=== PATIENT | female | born 2000 | race Caucasian/White ===

== ENCOUNTER 2025-03-24 12:59 | Emergency (ER) | payer OTHER, SELFPAY ==
[2025-03-24 13:03] VITALS: BP 120/77; PULSE 79; RESP 17; TEMP 36.6; O2SAT 100; BMI 22.3
--- NOTE | 2025-03-24 13:15 | ED_ITS ---
HPI - Extremity Problem General Chief complaint: Extremity Problem,Nontraumatic Stated complaint: Ring stuck on finger, Swelling Time Seen by Provider: 03/24/25 13:15 Source: patient Mode of arrival: Ambulatory History of Present Illness HPI Narrative: 24-year-old female presents with complaint of ring stuck on her finger. Patient states has been on for about 2 days started has a little bit of swelling tried to get off last night without any success she thought swelling might go down but did not improve has not been able to remove it. Patient denies any numbness or tingling. Presents she has been unable to remove it. States it is made out of silver plan at [employer]. Denies any injuries or other concerns. States she was an allergy to penicillins. Related Data Allergies Allergy/AdvReac Type Severity Reaction Status Date / Time Penicillins AdvReac Rash Verified 03/24/25 13:03 Review of Systems Review of Systems ROS Unobtainable: All systems reviewed & are unremarkable except as noted in HPI and below Patient History Social History Smoking Status: Never smoker Smoking Status: Never smoker Exam Narrative Exam Narrative: GENERAL: Alert and oriented x three, female in mild distress HEENT: Head normocephalic, atraumatic, EOMI, pupils reactive, face symmetric, moist mucous membranes NECK: Supple, full range of motion EXTREMITIES: Normal range of motion, no clubbing. Patient has a ring on her 4th finger of her right hand, has some slight swelling just distal to the ring. Patient is neurovascularly intact cap refills less than 2 seconds in all 5 fingers. She was normal range of motion. No abrasions or cuts noted. Normal color to the finger. Neurovascularly intact NEUROLOGICAL: Cranial nerves II through XII grossly intact. Moving all extremities SKIN: Warm, dry, no petechiae, no rashes or lesions. Initial Vital Signs Initial Vital Signs: Vital Signs Temperature 97.9 F 03/24/25 13:03 Pulse Rate 79 03/24/25 13:03 Respiratory Rate 17 03/24/25 13:03 Blood Pressure 120/77 03/24/25 13:03 Pulse Oximetry 100 03/24/25 13:03 Oxygen Delivery Method Room Air 03/24/25 13:03 Course Vital Signs Vital signs: Vital Signs - 8 hr 03/24/25 13:03 Temperature 97.9 F Pulse Rate 79 Respiratory Rate 17 Blood Pressure 120/77 Pulse Oximetry 100 Oxygen Delivery Method Room Air MDM - Extremity (Nontraumatic) MDM Narrative Medical decision making narrative: Patient ring was attempted to be removed by nursing was unsuccessful patient with lube and string, patient prefers to attempt to cut the ring off. Ring removed successfully by nursing with the ring cutter. On rechecked afterwards patient is neurovascularly intact post. No obvious abrasions or skin breakdown. Patient has full range of motion. Discharge Plan Departure Patient Disposition: Home Clinical Impression: Constrictive jewelry of finger Activity Restrictions/Additional Instructions: Follow up as needed. Please return if you have any increasing pain, swelling, color changes or other new or concerning changes to your finger. Stand Alone Forms: Patient Portal/API/Survey
== END 2025-03-24 13:54 | disposition home or self-care (01) ==
PROVIDERS: Emergency Provider Emergency Medicine
DX: S60.444A External constriction of right ring finger, initial encounter (principal); W49.04XA Ring or other jewelry causing external constriction, initial encounter
CPT/HCPCS: 99281